=== PATIENT | male | born 1975 | race Two or more races ===

== ENCOUNTER 2023-07-18 20:03 | Emergency (ER) | payer BC, OTHER ==
[~2023-07-18] VITALS: Ht 185.4 cm; Wt 90.7 kg
== END 2023-07-18 23:50 | disposition home or self-care (01) ==
LOC: ER 20:04
DX: S34.21XA Injury of nerve root of lumbar spine, initial encounter (principal); W18.39XA Other fall on same level, initial encounter; Y93.89 Activity, other specified; Y92.89 Other specified places as the place of occurrence of the external cause; M54.50 Low back pain, unspecified